=== PATIENT | female | born 1955 | race Caucasian/White ===

== ENCOUNTER 2020-10-24 08:27 | Outpatient (REF) | payer OTHER, SELFPAY ==
--- NOTE | ~2020-10-24 | MM_ITS ---
EXAMINATION: MM SCREENING DIGITAL BREAST TOMOSYNTHESIS, BILATERAL CLINICAL INFORMATION: Screening. Asymptomatic. The lifetime risk of breast cancer based on the Tyrer-Cuzick Model is 6.7%. COMPARISON: Mammography: October 19, 2019 and studies dating back to May 17, 2013 TECHNIQUE: Digital breast tomosynthesis is performed in both the craniocaudal and mediolateral oblique views along with computer-aided detection (CAD). Synthesized 2D images are generated from the tomosynthesis. FINDINGS: There are scattered areas of fibroglandular density (ACR BI-RADS breast composition Category b). There are no significant masses, abnormal calcifications, or other abnormalities. MM/MM tomosynthesis screening BI IMPRESSION: There are no significant changes from prior study. ASSESSMENT: BI-RADS 1: Negative RECOMMENDATION: Routine annual mammography screening. This patient's information was entered into a reminder system with a target due date for their next mammogram.
== END 2020-10-24 08:28 | disposition home or self-care (01) ==
LOC: HO.MAMMO 08:27
PROVIDERS: PCP Nurse Practitioner Family; Visit Provider Nurse Practitioner Family
DX: Z12.31 Encounter for screening mammogram for malignant neoplasm of breast (principal)
CPT/HCPCS: 77063; 77067

== ENCOUNTER 2022-05-28 15:51 | Outpatient (REF) | payer OTHER, SELFPAY ==
--- NOTE | ~2022-05-28 | MM_ITS ---
EXAMINATION: MM SCREENING DIGITAL BREAST TOMOSYNTHESIS, BILATERAL CLINICAL INFORMATION: Screening. Asymptomatic. Prior reduction mammoplasty, 2011. The lifetime risk of breast cancer based on the Tyrer-Cuzick Model is 6%. COMPARISON: Mammography: 10/24/2020, 10/19/2019, 05/06/2019 TECHNIQUE: Digital breast tomosynthesis is performed in both the craniocaudal and mediolateral oblique views along with computer-aided detection (CAD). Synthesized 2D images are generated from the tomosynthesis. FINDINGS: The breasts are almost entirely fatty (ACR BI-RADS breast composition Category a). There are no significant masses, abnormal calcifications, or other abnormalities. Stromal markings are stable. There is minor scarring and scattered benign round and rim calcifications consistent with the prior reduction mammoplasty. There is no developing density. The axilla are unremarkable. No significant changes. MM/MM tomosynthesis screening BI IMPRESSION: No mammographic evidence of malignancy. ASSESSMENT: BI-RADS 2: Benign RECOMMENDATION: Routine annual mammography screening. This patient's information was entered into a reminder system with a target due date for their next mammogram.
== END 2022-05-28 15:52 | disposition home or self-care (01) ==
LOC: HO.MAMMO 15:51
PROVIDERS: Visit Provider Nurse Practitioner Family
DX: Z12.31 Encounter for screening mammogram for malignant neoplasm of breast (principal)
CPT/HCPCS: 77063; 77067

== ENCOUNTER 2023-06-24 13:57 | Outpatient (REF) | payer OTHER, SELFPAY | END 2023-06-24 13:58 | disposition home or self-care (01) | LOC: HO.MAMMO 13:57 | PROVIDERS: Visit Provider Nurse Practitioner Family | DX: Z13.89 Encounter for screening for other disorder (principal) ==

== ENCOUNTER 2023-06-24 13:57 | Outpatient (REF) | payer OTHER, SELFPAY ==
--- NOTE | ~2023-06-24 | MM_ITS ---
EXAMINATION: BONE DENSITOMETRY CLINICAL INDICATION: Osteopenia. COMPARISON: Baseline BD dated 05/06/2019. TECHNIQUE: Using a [employer] DXA System (software version: 13.1) manufactured by [employer], dual-energy x-ray absorptiometry was performed of the lumbar spine and left hip. The images are of good technical quality. Summary results are attached. FINDINGS: LEFT FEMUR, NECK: Current: BMD 0.801 g/cm2, Z-score -0.6, T-score -1.7, osteopenia. Baseline: BMD 0.768 g/cm2. LEFT FEMUR, TOTAL: Current: BMD 0.843 g/cm2, Z-score -0.5, T-score -1.3, osteopenia, 2.1% increase from baseline (<5% change is not significant). Baseline: BMD 0.826 g/cm2. AP SPINE L1-L4: Current: BMD 1.117 g/cm2, Z-score 0.3, T-score -0.5, normal, 6.3% increase from baseline (<5% change is not significant). Baseline: BMD 1.051 g/cm2. IDENTIFIED RISK FACTORS: Left oophorectomy, menopause. HISTORY OF FRACTURE: None listed. MEDICATIONS: Calcium, vitamin D. MM/XR DEXA axial skeleton IMPRESSION: 1. DIAGNOSIS: Osteopenia based on the lowest T-score value of -1.7 in the femoral neck applying World Health Organization criteria. 2. 10-YEAR FRACTURE RISK PREDICTION, FRAX: Major osteoporotic fracture (clinical spine, forearm, hip or shoulder) 9.6%. Hip fracture 1.3%. 3. Treatment Recommendations: NOF guidelines recommend consideration for treatment in postmenopausal women and men age 50 and older presenting with the following: -A hip or vertebral (clinical or morphometric) fracture. -T-score less than or equal to -2.5 at the femoral neck or spine after appropriate evaluation to exclude secondary causes. -Low bone mass at the hip or spine and a 10-year fracture probability by FRAX of greater than or equal to 3% for hip fracture or greater than or equal to 20% for major osteoporotic fracture based on the [place] adapted WHO algorithm. 4. Other Recommendations: All treatment decisions require clinical judgment and consideration of individual patient factors, including patient preferences, comorbidities, previous drug use, risk factors not captured in the FRAX model (e.g. frailty, falls, vitamin D deficiency, increased bone turnover, interval significant decline in bone density) and possible under or overestimation of fracture risk by FRAX. Additional medical evaluation for secondary cause of low bone mineral density may be appropriate. FUTURE SCAN RECOMMENDATION: People with diagnosed cases of osteoporosis or at high risk for fracture should have regular bone mineral density tests. For patients eligible for Medicare, routine testing is allowed once every 2 years. The testing frequency can be increased to one year for patients who have rapidly progressing disease, those who are receiving or discontinuing medical therapy to restore bone mass, or have additional risk factors.
--- NOTE | ~2023-06-24 | MM_ITS ---
EXAMINATION: MM SCREENING DIGITAL BREAST TOMOSYNTHESIS, BILATERAL CLINICAL INFORMATION: Screening. Asymptomatic. The patient has a history of prior breast reduction. COMPARISON: Mammography: This study is compared with prior exams dating back to 2019. TECHNIQUE: Digital breast tomosynthesis is performed in both the craniocaudal and mediolateral oblique views along with computer-aided detection (CAD). Synthesized 2D images are generated from the tomosynthesis. FINDINGS: The breasts are almost entirely fatty (ACR BI-RADS breast composition Category a). There are no significant masses, abnormal calcifications, or other abnormalities. Minimal post reduction changes are present in each breast. MM/MM tomosynthesis screening BI IMPRESSION: No mammographic evidence of malignancy. ASSESSMENT: BI-RADS BI-RADS 2 - Benign Findings RECOMMENDATION: Routine annual mammography screening. 1 year F/U This examination should not preclude the clinical evaluation of a suspicious palpable abnormality. This patient's information was entered into a reminder system with a target due date for their next mammogram.
== END 2023-06-24 13:58 | disposition home or self-care (01) ==
LOC: HO.MAMMO 13:57
PROVIDERS: Visit Provider Nurse Practitioner Family
DX: Z12.31 Encounter for screening mammogram for malignant neoplasm of breast (principal); Z13.820 Encounter for screening for osteoporosis; M85.80 Other specified disorders of bone density and structure, unspecified site; Z78.0 Asymptomatic menopausal state
CPT/HCPCS: 77063; 77067; 77080

== ENCOUNTER → 2023-06-24 14:30 | Outpatient (BNV) | payer OTHER, SELFPAY | PROVIDERS: Visit Provider Radiology Diagnostic Radiology | DX: Z12.31 Encounter for screening mammogram for malignant neoplasm of breast (principal) | CPT/HCPCS: 77063; 77067 ==

== ENCOUNTER 2024-09-06 07:37 | Outpatient (REF) | payer OTHER, SELFPAY | END 2024-09-06 07:38 | disposition home or self-care (01) | LOC: HO.MAMMO 07:37 | PROVIDERS: PCP Nurse Practitioner Family; Visit Provider Nurse Practitioner Family | DX: Z12.31 Encounter for screening mammogram for malignant neoplasm of breast (principal) | CPT/HCPCS: 77063; 77067 ==

== ENCOUNTER → 2024-09-06 07:45 | Outpatient (BNV) | payer OTHER, SELFPAY | PROVIDERS: PCP Nurse Practitioner Family; Visit Provider Internal Medicine | DX: Z12.31 Encounter for screening mammogram for malignant neoplasm of breast (principal) | CPT/HCPCS: 77063; 77067 ==

== ENCOUNTER 2025-03-28 07:43 | Outpatient (AMB) | payer OTHER, SELFPAY ==
--- OUTSIDE RECORDS SUMMARY | 2025-03-28 07:46 | XMS_ITS | Patient Health Record ---
Author Organization [facility] Address [address] [place] [address] Care Team Providers Care French Weaver Name Role Phone Edith ROCA, Diana Primary Care Provider Melvin Molina Jr [phone] Reason For Referral No Information Medications Medication SIG (Take, Route, Fr equency, Duration) Notes Start Date End Date Status Lisinopril 10mg Acti ve Vitamin D 2000mg Act juli Aspir-81 325mg Activ e Vitamin B12 1000mg A ctive Crestor 400mg Active metFORMIN HCl 500mg Active Suprep Bowel Prep 1 as directed Orally 1 for 1 dose 12/22/2013 09/14/2024 Active Problems Problem Type SNOMED Code ICD Code Onset Dates Problem Status W/U Status Risk Notes Problem Colon cancer screening (172928153) Colon cancer screening (V76.51) Active confirmed Problem Encounter for long-term (current) use of aspirin (V58.66) Active confirmed Problem Pre-surgery evaluation (918796506) Visit for pre-operative examination (V72.84) Active confirmed Plan Of Treatment Future Test Test Name Order Date COLONOSCOPY 12/22/2013 Insurance Providers Payer Name Payer Address Payer Phone Subscriber Number Group Number Insured Name Patient Relationship to Insured Coverage Start Date Coverage End Date [facility] [address] [facility] [place] [phone] [id number] ALANA COLE Self - patient is the insured Medical (General) History Medical History History ICD Code diabetes mellitus elevated cholesterol Surgical History Surgery Date(Month/Year) breast reconstruction-reduction oopherectomy-left knee surgery-left
--- NOTE | 2025-03-28 08:01 | A.OFFVIS_ITS ---
Vital Signs 03/28/25 08:05 Height 5 ft 3 in Weight 197 lb BMI 34.9 BP 113/66 Blood Pressure Location Lt brachial Position Sitting Pulse 84 Pulse Oximetry (%) 97 Oxygen Delivery Method Room Air Intake Visit Reasons: Constipation Intake Note: Patient new consult for Constipation. Patient cc: abdominal bloating, constipation if she does not take Senna, heartburn on and off, denies any other GI issues. Dried Fruit Washer Required: No Accompanied by: Self / Same As Patient Allergies oxycodone Adverse Reaction (Severe, Verified 03/28/25 08:26) Difficulty Breathing Medication List - Last Reconciled 03/28/25 by Cecy Gibbs CNP calcium carbonate 600 mg PO DAILY cetirizine (Zyrtec) 10 mg PO DAILY PRN cholecalciferol (vitamin D3) 50 mcg PO DAILY empagliflozin (Jardiance) 10 mg PO DAILY lisinopril 10 mg PO DAILY loteprednol etabonate 0.5% (Lotemax) 1 drp ophthalmic (eye) BID mecobalamin (vitamin B12) 1,000 mcg PO DAILY metformin 500 mg PO BID naproxen 250 mg PO BID PRN rhubarb root extract (Estroven Complete Menopause Relief) mg PO rosuvastatin 40 mg PO DAILY sennosides (senna) 8.6 mg PO DAILY HPI HPI Constipation: Details: Patient is a 69-year-old female with PMH of obesity, diabetes, hypertension and hyperlipidemia. Referred by PCP for further evaluation of constipation. Her constipation worsened while taking Ozempic for diabetes, which she stopped in October after 6 months due to side effects including heartburn, nausea, and vomiting. She reports lifelong slow transit constipation with hard stools, straining, and incomplete evacuation. Bowel movements occur most days but were previously small and stringy. This has improved in recent months. She experiences lower abdominal tenderness that resolves after bowel movements, passes gas but gets bloated easily, and suspects food sensitivities. Currently takes 2 senna tablets daily and drinks plenty of water but continues having hard stools. Heartburn occurs weekly, likely food-triggered, and is relieved by Mylanta. She rarely has regurgitation and denies dysphagia. She tries to avoid eating late and uses omeprazole sparingly for severe episodes. Her diet includes multi-grain Cheerios, salad with chicken, canned fruit, and sandwiches. She drinks lactose- free milk and acknowledges needing more fiber but is concerned about gas and bloating. 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 Shares Cologuard completed in late 2021/early 2022, which returned negative. Prior screening included colonoscopy with reports of negative findings, demonstrating up-to-date screening for colorectal cancer risk. Patient denies: fever/chills, n/v, unintentional wt loss or melena/hematochezia. 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[employer] [employer] - Diet includes multi-grain cereals, salads, avoids late meals - family hx as below -denies personal hx of CA -denies significant cardiopulmonary history PFSH Medical History (Updated 03/28/25 @ 09:40 by Cecy Gibbs CNP) Mild acid reflux Diabetes Constipation Family History (Updated 02/28/25 @ 14:38 by Tanja Dwyer) Brother Dementia Paternal Grandmother Breast cancer Social History (Updated 03/28/25 @ 08:02 by Tanja Dwyer) Household Members: Family Alcohol intake: never Patient Tobacco Use Status: Never used Tobacco Review of Systems Const Reports as per HPI ENT Reports as per HPI Card Reports as per HPI Resp Reports as per HPI GI Reports as per HPI Reports as per HPI Physical Exam Const General: healthy appearing, no acute distress and well developed Nutritional Appearance: well nourished Orientation/consciousness: patient oriented x3 HEENT Head: Yes normal to inspection, Yes normocephalic and Yes atraumatic Face and sinus: Yes normal facial exam Eyes General: appearance normal, both eyes and all related structures Neck Neck: Yes normal visual inspection Resp Effort & Inspection: normal respiratory effort, able to speak in complete sentences, no tracheal deviation and symmetric chest movement Auscultation: clear to auscultation bilaterally Cardio Jugular venous distension: no JVD Rate: regular rate Rhythm: regular rhythm Heart sounds: S1 normal heart sound present, S2 normal heart sound present, no gallops and no murmurs GI Inspection: Yes normal to inspection, No distended and Yes obesity Palpation (GI): Soft to palpation, not firm, nontender and No hepatosplenomegaly present Auscultation: Hypoactive bowel sounds present Rectal Exam - Female: visual inspection normal, decreased sphincter tone, No External hemorrhoid(s) present, No Lesions present (GI), No Anal fissure(s) present, No Laceration(s) present (GI), No mass and No tenderness Neuro General: patient oriented x3 Gait exam (Neuro): Normal gait present Psych Appearance: grossly normal Mental Status: mental status grossly normal Speech and movement: Normal speech and movement present Affect: normal affect Attitude: cooperative Thought process: Normal thought process present Thought content: Normal thought content present Insight: Good insight present (Psych) Judgement: Good judgement present (Psych) Assessment & Plan Assessment & Plan (1) Constipation: Code(s): K59.00 - Constipation, unspecified Category: Medical Qualifiers: Constipation type: unspecified constipation type Qualified Code(s): K59.00 - Constipation, unspecified Plan: Longstanding history of slow transit constipation, exacerbated during Ozempic use. Current symptoms include hard stools, straining, and occasional incomplete evacuation. - Differential Diagnosis: Slow Transit Constipation, Pelvic Floor Dysfunction, Secondary Constipation due to Diabetes, Medication-induced Constipation - Start docusate sodium/sennosides 2 tablets PO daily - increase fiber intake but recommend following LOW Fodmap, handout provided - Order thyroid function tests and complete blood count to rule out hormone imbalance and anemia - Refer for anorectal manometry at [facility] - Recommend use of a squatty potty for improved positioning during defecation - Instruct patient to seek immediate care if experiencing inability to pass gas, nausea, vomiting, or blood in stools (2) Diabetes: Code(s): E11.9 - Type 2 diabetes mellitus without complications Category: Medical Qualifiers: Diabetes mellitus type: type 2 Diabetes mellitus prison insulin use: without buttermaker continuous churn use Diabetes mellitus complication status: without complication Qualified Code(s): E11.9 - Type 2 diabetes mellitus without complications Plan: History of diabetes, previously managed with glipizide. Currently on Jardiance 10 mg daily. Recent use of Ozempic was discontinued due to side effects. - Continue Jardiance 10 mg PO daily - Follow up with primary care provider in May for diabetes management (3) Mild acid reflux: Code(s): K21.9 - Gastro-esophageal reflux disease without esophagitis Category: Medical Plan: Intermittent heartburn, occurring about once weekly, likely triggered by food. Symptoms improved after discontinuing Ozempic but persist. - Recommend famotidine 20 mg PO as needed for intermittent heartburn symptoms - Consider upper endoscopy if symptoms worsen or do not improve with current management Education on GERD prevention : -Advised against heavy meals; encouraged small, frequent meals instead of large ones. - Instructed to remain upright for 2?3 hours after eating. - Advised to avoid late-night meals, spicy foods, caffeine, alcohol, known dietary triggers, and tight-fitting clothing. - Emphasis placed on gradual implementation of lifestyle changes to improve adherence and symptom control. Plan Follow-up in 2 months or sooner as needed Time: I spent a total of 45 minutes on the date of encounter which includes: Preparing to see the patient (reviewed previous documentation, test results and medical history) Performing a medically appropriate exam and/or evaluation Ordering medications, tests, and procedures Documenting clinical information in the health record Orders: Orders TSH reflex Free T4 Today K59.00 - Constipation, unspecified Complete Blood Count Auto Diff Today K59.00 - Constipation, unspecified Basic Metabolic Panel Today E11.9 - Type 2 diabetes mellitus without complications Hemoglobin A1c Today E11.9 - Type 2 diabetes mellitus without complications Referrals Gastroenterology Referral K59.00 - Constipation, unspecified, K62.89 - Other specified diseases of anus and rectum Coding Level of Care Code New Pt New Pt Level 4 (58405) Patient Type New Diagnoses Constipation, unspecified constipation type K59.00 Constipation type: unspecified constipation type Type 2 diabetes mellitus without complication, without long-term current use of insulin E11.9 Diabetes mellitus type: type 2 Diabetes mellitus buttermaker continuous churn insulin use: without buttermaker continuous churn use Diabetes mellitus complication status: without complication Mild acid reflux K21.9
[2025-03-28 08:05] VITALS: BP 113/66; PULSE 84; O2SAT 97; BMI 34.9
== END 2025-03-28 08:50 | disposition home or self-care (01) ==
PROVIDERS: PCP Nurse Practitioner Family; Visit Provider Nurse Practitioner Family
DX: K59.00 Constipation, unspecified (principal); E11.9 Type 2 diabetes mellitus without complications; K21.9 Gastro-esophageal reflux disease without esophagitis
CPT/HCPCS: 99204

== ENCOUNTER 2025-03-28 07:43 | Outpatient (REF) | payer OTHER, SELFPAY ==
[2025-03-28 09:10] LABS: MANUAL DIFF FLAG NO
[2025-03-28 09:42] LABS: Hematocrit 38.2 % (37.0-47.0); Hemoglobin 12.9 g/dl (12.0-16.0); Imm Gran Abs Auto 0.01 X10*3/uL (0.00-0.03); Imm Gran Pct Auto 0.2 % (0.0-0.4); Lymphocytes Absolute Auto 2.1 X10*3/uL (1.2-4.9); Mean Corpuscular HGB Conc 33.8 g/dl (31.0-35.0); Mean Corpuscular Hemoglobin 29.7 pg (27.0-33.0); Mean Corpuscular Volume 87.8 fL (80.0-98.0); NRBC Abs Auto 0.000 X10*3/uL (0.0-0.012); NRBC Pct Auto 0.0 /100WBC (0.0-0.2); Platelet Count 238 X10*3/uL (160-400); Red Blood Count 4.35 X10*6/uL (4.20-5.50); White Blood Count 6.0 X10*3/uL (4.8-10.8)
[2025-03-28 09:51] LABS: Hemoglobin A1C 224.1568 umol/L; Total Hemoglobin (HGBA1C) 3400.0733 umol/L
[2025-03-28 10:20] LABS: Anion Gap 16 (12-20); Blood Urea Nitrogen 25 mg/dL (9-16); Calcium 9.6 mg/dL (8.4-10.2); Carbon Dioxide 27 mmol/L (22-29); Chloride 108 mmol/L (96-108); Estimated Glomerular Filt Rate 50; Potassium 5.4 mmol/L (3.3-5.1); Sodium 146 mmol/L (135-145)
== END 2025-03-28 07:44 | disposition home or self-care (01) ==
LOC: HO.LAB 07:43
PROVIDERS: PCP Nurse Practitioner Family; Visit Provider Nurse Practitioner Family
DX: K59.00 Constipation, unspecified (principal); E11.9 Type 2 diabetes mellitus without complications; K21.9 Gastro-esophageal reflux disease without esophagitis; K62.89 Other specified diseases of anus and rectum; Z79.84 Long term (current) use of oral hypoglycemic drugs
CPT/HCPCS: 36415; 80048; 83036; 84443; 85025

== ENCOUNTER 2025-04-11 10:28 | Outpatient (REF) | payer OTHER, SELFPAY ==
--- OUTSIDE RECORDS SUMMARY | 2025-04-11 11:27 | XMS_ITS | Patient Health Record ---
Author Organization [facility] Address [address] [place] [address] Care Team Providers Care Spot Washer Name Role Phone Edith ROCA, Diana Primary Care Provider Melvin Molina Jr Reason For Referral No Information Medications Medication [...] Status Risk Notes Problem Colon cancer screening (364503736) Colon cancer screening (V76.51) Active confirmed Problem Encounter for long-term (current) use of aspirin (V58.66) Active confirmed Problem Pre-surgery evaluation (357624850) Visit for pre-operative examination (V72.84) Active confirmed Plan Of Treatment Future Test Test Name Order Date COLONOSCOPY 12/22/2013 Insurance Providers Payer Name Payer Address Payer Phone Subscriber Number Group Number Insured Name Patient Relationship to Insured Coverage Start Date Coverage End Date [facility] [address] [facility] [place] [phone] [id number] ALANA COLE Self - patient is the insured Medical (General) History Medical History History ICD Code diabetes mellitus elevated cholesterol Surgical History Surgery Date(Month/Year) breast reconstruction-reduction oopherectomy-left knee surgery-left
[2025-04-11 12:06] LABS: Anion Gap 16 (12-20); Blood Urea Nitrogen 26 mg/dL (9-16); Calcium 9.7 mg/dL (8.4-10.2); Carbon Dioxide 18 mmol/L (22-29); Chloride 109 mmol/L (96-108); Estimated Glomerular Filt Rate 41; Potassium 5.0 mmol/L (3.3-5.1); Sodium 138 mmol/L (135-145)
== END 2025-04-11 10:29 | disposition home or self-care (01) ==
LOC: HO.LAB 10:28
PROVIDERS: Visit Provider Nurse Practitioner Family
DX: E11.9 Type 2 diabetes mellitus without complications (principal)
CPT/HCPCS: 36415; 80048